=== PATIENT | male | born 1980 | race African-American/Black ===

== ENCOUNTER 2017-08-05 13:25 | Emergency (ER) | payer SELFPAY ==
[2017-08-05 13:30] VITALS: BP 138/88
--- NOTE | 2017-08-05 14:46 | ER Document Report ---
ED General - General Chief Complaint: Eye Problem Stated Complaint: POSSIBLE FOREIGN OBJECT IN LEFT EYE Time Seen by Provider: 08/05/17 14:03 Mode of Arrival: Ambulatory Information source: Patient Notes: 37-year-old male presents with concern of foreign body to the left eye just prior to arrival. Patient notes he was working on wood and thinks chips of what may have gotten into his eye, he notes that before he got here he felt that it was under the upper eyelid on the left but since being here symptoms have resolved. Patient notes last tetanus was one year ago denies any visual changes TRAVEL OUTSIDE OF THE [place] IN LAST 30 DAYS: No - HPI Onset: Just prior to arrival Onset/Duration: Sudden, Gone Quality of pain: No pain Severity: Mild Pain Level: Denies Associated symptoms: None Exacerbated by: Denies Relieved by: Denies Similar symptoms previously: No Recently seen / treated by doctor: No - Related Data Allergies/Adverse Reactions: No Known Allergies Allergy (Verified 08/05/17 13:27) Past Medical History - Social History Smoking Status: Never Smoker Cigarette use (# per day): No Chew tobacco use (# tins/day): No Smoking Education Provided: No Family History: Reviewed & Not Pertinent - Past Medical History Cardiac Medical History: Reports: Hx Hypertension - Immunizations Immunizations up to date: Yes Hx Diphtheria, Pertussis, Tetanus Vaccination: No Hx Pneumococcal Vaccination: 04/27/00 Review of Systems - Review of Systems Notes: REVIEW OF SYSTEMS: CONSTITUTIONAL : Denies fever, chills, or sweats. Denies recent illness. EENT: Admits to foreign body in the left eye CARDIOVASCULAR: Denies chest pain. Denies palpitations or racing or irregular heart beat. Denies ankle edema. RESPIRATORY: Denies cough, cold, or chest congestion. Denies shortness of breath, difficulty breathing, or wheezing. GASTROINTESTINAL: Denies abdominal pain or distention. Denies nausea, vomiting , or diarrhea. Denies blood in vomitus, stools, or per rectum. Denies black, tarry stools. Denies constipation. GENITOURINARY: Denies difficulty urinating, painful urination, burning, frequency, blood in urine, or discharge. MUSCULOSKELETAL: Denies back or neck pain or stiffness. Denies joint pain or swelling. SKIN: Denies rash, lesions or sores. HEMATOLOGIC : Denies easy bruising or bleeding. LYMPHATIC: Denies swollen, enlarged glands. NEUROLOGICAL: Denies confusion or altered mental status. Denies passing out or loss of consciousness. Denies dizziness or lightheadedness. Denies headache. Denies weakness or paralysis or loss of use of either side. Denies problems with gait or speech. Denies sensory loss, numbness, or tingling. Denies seizures. PSYCHIATRIC: Denies anxiety or stress. Denies depression, suicidal ideation, or homicidal ideation. ALL OTHER SYSTEMS REVIEWED AND NEGATIVE. Dictation was performed using edo voice recognition software PHYSICAL EXAMINATION: GENERAL: Well-appearing, well-nourished and in no acute distress. HEAD: Atraumatic, normocephalic. EYES: Pupils equal round and reactive to light, extraocular movements intact, sclera anicteric, conjunctiva is normal on the right slightly injected on the left, area was manually explored no foreign body was noted under the upper eyelid which was flipped, under fluorescein strip and UV light no corneal abrasions or ulcerations were noted, patient had his eye washed at wash station and notes no symptoms afterwards ENT: Nares patent, oropharynx clear without exudates. Moist mucous membranes. NECK: Normal range of motion, supple without lymphadenopathy LUNGS: Breath sounds clear to auscultation bilaterally and equal. No wheezes rales or rhonchi. HEART: Regular rate and rhythm without murmurs ABDOMEN: Soft, nontender, nondistended abdomen. No guarding, no rebound. No masses appreciated. Musculoskeletal: Normal range of motion, no pitting or edema. No cyanosis. NEUROLOGICAL: Cranial nerves grossly intact. Normal speech, normal gait. Normal sensory, motor exams PSYCH: Normal mood, normal affect. SKIN: Warm, Dry, normal turgor, no rashes or lesions noted. Physical Exam - Vital signs Vitals: Temp Pulse Resp BP Pulse Ox 98.4 F 74 16 138/88 H 98 08/05/17 13:28 08/05/17 13:28 08/05/17 13:28 08/05/17 13:28 08/05/17 13:28 Course - Re-evaluation Re-evalutation: 08/05/17 17:00 Given that the examination is benign patient's symptoms have since resolved I have very low suspicion that there is still a foreign body in the eye, it was examined carefully and no abrasions lacerations ulcerations or foreign bodies were noted. Patient overall looks well is in no distress, tetanus will not be updated since he just had it done Patient will nonetheless be given follow-up with ophthalmology for further evaluation care After performing a Medical Screening Examination, I estimate there is LOW risk for a RETAINED CORNEAL or LID FOREIGN BODY, DEEP SPACE INFECTION (e.g., ORBITAL CELLULITIS OR ABSCESS), ACUTE GLAUCOMA, PENETRATING GLOBE INJURY, RETINAL DETACHMENT, or MENINGITIS thus I consider the discharge disposition reasonable. I have reevaluated this patient multiple times and no significant life threatening changes are noted. Also, there is no evidence or peritonitis, sepsis , or toxicity. The patient and I have discussed the diagnosis and risks, and we agree with discharging home with outpatient follow-up with the understanding that symptoms and presentations can change. We also discussed returning to the Emergency Department immediately if new or worsening symptoms occur. We have discussed the symptoms which are most concerning (e.g., changing or worsening pain, vision changes, neck stiffness or fever) that necessitate immediate return. - Vital Signs Vital signs: Temp Pulse Resp BP Pulse Ox 98.4 F 74 16 138/88 H 98 08/05/17 13:28 08/05/17 13:28 08/05/17 13:28 08/05/17 13:28 08/05/17 13:28 Discharge - Discharge Clinical Impression: Foreign body, eye Qualifiers: Encounter type: initial encounter Laterality: left Qualified Code(s): T15.92XA - Foreign body on external eye, part unspecified, left eye, initial encounter Condition: Stable Disposition: HOME, SELF-CARE Instructions: Corneal Foreign Body ([facility]) Referrals: KERI VILLARREAL MD [ACTIVE STAFF] - Follow up tomorrow
== END 2017-08-05 14:59 | disposition home or self-care (01) ==
LOC: ER 13:25
DX: T15.92XA Foreign body on external eye, part unspecified, left eye, initial encounter (principal); X58.XXXA Exposure to other specified factors, initial encounter; I10 Essential (primary) hypertension
CPT/HCPCS: 99283

== ENCOUNTER 2018-02-09 07:44 | Inpatient (IN) | payer SELFPAY ==
[2018-02-09] MEDS ORDERED: ONDANSETRON 4 MG TAB.RAPDIS PO ONE (08:09)
[2018-02-09] MEDS ORDERED: BUPIVACAINE HCL 0.25% /EPINEPHRINE INJ/PF 30 ML SDV INJ ONE (08:11)
[2018-02-09] MEDS ORDERED: LIDOCAINE 1% INJ (10 MG/ML) 10 ML MDV INJ ONE (08:12)
--- NOTE | 2018-02-09 09:06 | ER Document Report ---
ED General - General Chief Complaint: Possible Overdose Stated Complaint: ABSCESS,POSSIBLE OVERDOSE Time Seen by Provider: 02/09/18 08:00 Notes: Patient is a 38-year-old male that presents to the emergency department for chief complaint of dental pain and taking too much BC powder. Patient reports he started having pain in his mouth 2 days ago, and yesterday started taking BC powder, in the morning, initially took a 2 pack of that in the morning, and then over the course of the day took 2 additional 6 packs of that medication, which for each dose includes 875 mg, over the course of the day he also took 9 200 mg ibuprofen, to try to help with his pain with his abscessed tooth. He then around 2 AM this morning took an additional 6 pack of the BC powder, to help with his pain. His pain persisted so at this point he decided come to the emergency department, and he realized that he had taken too much of this medication which was a concern for him as well. He had some nausea, but denies having any vomiting, denies any recent fevers, chills, night sweats, chest pain , tinnitus, ear pain, abdominal pain. He currently rates the pain in his tooth as a 4 out of 10, as an aching sensation and constant in the right lower teeth. Past Medical History: Denies chronic medical conditions Past Surgical History: Toe surgery Social History: Admits to smoking cigarettes daily, and occasional alcohol use, admits to marijuana use Family History: Reviewed and noncontributory for presenting illness Allergies: Reviewed, see documented allergy list. REVIEW OF SYSTEMS: Unless otherwise stated in this report the patient's positive and negative responses for review of systems for constitutional, eyes, ENT, cardiovascular, respiratory, gastrointestinal, neurological, genitourinary, musculoskeletal, and integumentary systems and related systems to the presenting problem are either as stated in the HPI or were not pertinent or were negative for the symptoms and/or complaints related to the presenting medical problem. PHYSICAL EXAMINATION: Vital signs reviewed, nursing noted reviewed. GENERAL: Well-appearing, well-nourished and in no acute distress. HEAD: Atraumatic, normocephalic. EYES: Eyes appear normal, extraocular movements intact, sclera anicteric, conjunctiva are normal. ENT: nares patent, oropharynx clear without exudates. Moist mucous membranes. Poor dentition, patient does have a tooth abscess noted at tooth #29, tender to palpate. Several other fractured teeth noted. NECK: Normal range of motion, supple without lymphadenopathy LUNGS: Breath sounds clear to auscultation bilaterally and equal. No wheezes rales or rhonchi. HEART: Heart rate tachycardic, regular rhythm, no audible murmurs ABDOMEN: Soft, nontender, normoactive bowel sounds. No rebound, guarding, or rigidity. No masses appreciated. EXTREMITIES: Nontender, good range of motion, no pitting or edema. NEUROLOGICAL: No focal neurological deficits. Moves all extremities spontaneously Motor and sensory grossly intact on exam. PSYCH: Normal mood, normal affect. SKIN: Warm, Dry, normal turgor, no rashes or lesions noted on exposed skin TRAVEL OUTSIDE OF THE [place] IN LAST 30 DAYS: No - Related Data Allergies/Adverse Reactions: No Known Allergies Allergy (Verified 02/09/18 08:08) Past Medical History - Social History Smoking Status: Current Every Day Smoker Chew tobacco use (# tins/day): No Frequency of alcohol use: Social Drug Abuse: Marijuana Family History: Reviewed & Not Pertinent Patient has suicidal ideation: No Patient has homicidal ideation: No - Past Medical History Cardiac Medical History: Reports: Hx Hypertension Renal/ Medical History: Denies: Hx Peritoneal Dialysis - Immunizations Immunizations up to date: Yes Hx Diphtheria, Pertussis, Tetanus Vaccination: No Hx Pneumococcal Vaccination: 04/27/00 Physical Exam - Vital signs Vitals: Temp Pulse Resp BP Pulse Ox 98.3 F 125 H 18 135/88 H 100 02/09/18 07:46 02/09/18 07:46 02/09/18 07:46 02/09/18 07:46 02/09/18 07:46 Course - Re-evaluation Re-evalutation: Patient seen and examined vital signs reviewed. Laboratory data and imaging were ordered as appropriate for the patient's presenting symptoms and complaint, with consideration of any critical or life threatening conditions that may be associated with their obtained history and exam as noted above. Patient was treated with IV fluids, bicarb bolus and infusion, per protocol recommended by poison control after I discussed this patient's case with him, Results were reviewed when available and demonstrated markedly elevated salicylate level at 48.8, bicarb is 21, anion gap was 15, urine was acidotic with a pH 5.0 Patient was treated for his dental abscess, with an I&D of the abscess, and dental block, which did improve the patient's symptoms, he was also started on Pen-Vee K for the infection The patient was re-evaluated and was stable Evaluation was most consistent with acute salicylate overdose, accidental, dental abscess Results were discussed with the patient at this point after careful consideration I feel that that patient should be admitted to the hospital. This was discussed with the patient that it is in the best interest for their care to be admitted for further evaluation and management. Patient agreed with this plan of care. A call was placed to the admitted physician, Dr. Michelle who graciously accepted the patient onto their service. *Note is created using voice recognition software and may contain spelling, syntax or grammatical errors. Laboratory 02/09/18 02/09/18 02/09/18 08:45 08:45 09:45 WBC 9.7 RBC 4.82 Hgb 14.8 Hct 43.4 MCV 90 MCH 30.8 MCHC 34.1 RDW 13.2 Plt Count 298 Seg Neutrophils % 76.2 Lymphocytes % 12.6 L Monocytes % 10.0 Eosinophils % 0.5 Basophils % 0.7 Absolute Neutrophils 7.4 Absolute Lymphocytes 1.2 Absolute Monocytes 1.0 Absolute Eosinophils 0.0 Absolute Basophils 0.1 Sodium 139.6 Potassium 4.0 Chloride 104 Carbon Dioxide 21 L Anion Gap 15 BUN 15 Creatinine 1.18 Est GFR ( Amer) > 60 Est GFR (Non-Af Amer) > 60 Glucose 111 H Calcium 10.6 H Total Bilirubin 0.4 Direct Bilirubin 0.3 Neonat Total Bilirubin Not Reportable Neonat Direct Bilirubin Not Reportable Neonat Indirect Bili Not Reportable AST 29 ALT 33 Alkaline Phosphatase 78 Total Protein 8.7 H Albumin 4.8 Lipase 39.8 Urine Color YELLOW Urine Appearance SLIGHTLY-CLOUDY Urine pH 5.0 Ur Specific [place] 1.019 Urine Protein 30 H Urine Glucose (UA) NEGATIVE Urine Ketones TRACE H Urine Blood NEGATIVE Urine Nitrite NEGATIVE Urine Bilirubin NEGATIVE Urine Urobilinogen NEGATIVE Ur Leukocyte Esterase NEGATIVE Urine WBC (Auto) 4 Urine RBC (Auto) 1 U Hyaline Cast (Auto) 1 Squamous Epi Cells Auto <1 Urine Mucus (Auto) RARE Urine Ascorbic Acid NEGATIVE Salicylates 48.8 H* Acetaminophen < 10 L - Vital Signs Vital signs: Temp Pulse Resp BP Pulse Ox 98.3 F 88 16 139/106 H 98 02/09/18 07:46 02/09/18 10:00 02/09/18 10:00 02/09/18 10:00 02/09/18 10:00 - Laboratory Result Diagrams: 02/09/18 08:45 02/09/18 08:45 Laboratory results interpreted by me: 02/09/18 02/09/18 02/09/18 08:45 08:45 09:45 Lymphocytes % 12.6 L Carbon Dioxide 21 L Glucose 111 H Calcium 10.6 H Total Protein 8.7 H Urine Protein 30 H Urine Ketones TRACE H Salicylates 48.8 H* Acetaminophen < 10 L - EKG Interpretation by Me Additional EKG results interpreted by me: EKG demonstrates sinus rhythm with a ventricular rate of 90 bpm, normal axis, normal intervals, no dysrhythmias, no evidence of acute ischemia on this EKG. Procedures - Incision and Drainage Right Face Type: Simple Anesthetic type: 1% Lidocaine, 0.25% Bupivacaine mL's of anesthetic: 3 Incision Method: Incision made with needle Amount/type of drainage: minimal purulent drainage Notes: 02/09/18 11:21 DENTAL ABSCESS TOOTH #29 Dental block was administered, with a combination of 0.25% bupivacaine, and 1% lidocaine, total of 3 mL's, this was injected into the trigone, on the right patient tolerated this well, and had good anesthesia. Discharge - Discharge Clinical Impression: Dental abscess Accidental poisoning by salicylates Qualifiers: Encounter type: initial encounter Qualified Code(s): T39.091A - Poisoning by salicylates, accidental (unintentional), initial encounter Condition: Stable Disposition: ADMITTED INPATIENT Admitting Provider: Hospitalist - DR. MICHELLE Unit Admitted: Medical Floor
[2018-02-09 09:17] LABS: ABSOLUTE BASOPHILS # (AUTO) 0.1 10^3/uL (0.0-0.2); ABSOLUTE LYMPHOCYTES (AUTO) 1.2 10^3/uL (0.5-4.7); ABSOLUTE NEUT (AUTO) 7.4 10^3/uL (1.7-8.2); BASOPHILS % (AUTO) 0.7 % (0-2); EOSINOPHILS % (AUTO) 0.5 % (0-6); HEMATOCRIT 43.4 % (37.9-51.0); HEMOGLOBIN 14.8 g/dL (13.5-17.0); LYMPHOCYTES % (AUTO) 12.6 % (13-45); MEAN CORPUSCULAR HEMOGLOBIN 30.8 pg (27.0-33.4); MEAN CORPUSCULAR HGB CONC 34.1 g/dL (32.0-36.0); MEAN CORPUSCULAR VOLUME 90 fl (80-97); PLATELET COUNT 298 10^3/uL (150-450); RED BLOOD COUNT 4.82 10^6/uL (4.35-5.55); RED CELL DISTRIBUTION WIDTH 13.2 % (11.5-14.0); SEGMENTED NEUTROPHILS % (AUTO) 76.2 % (42-78); TOTAL CELLS COUNTED % (AUTO) 100 %; WHITE BLOOD COUNT 9.7 10^3/uL (4.0-10.5)
[2018-02-09 09:42] LABS: BLOOD UREA NITROGEN 15 mg/dL (7-20); CALCIUM 10.6 mg/dL (8.4-10.2); GLUCOSE 111 mg/dL (75-110)
[2018-02-09 09:43] LABS: ALANINE AMINOTRANSFERASE 33 U/L (21-72); ALBUMIN 4.8 g/dL (3.5-5.0); ALKALINE PHOSPHATASE 78 U/L (38-126); ANION GAP 15 (5-19); ASPARTATE AMINO TRANSFERASE 29 U/L (17-59); BILIRUBIN,DIRECT 0.3 mg/dL (0.0-0.4); BILIRUBIN,TOTAL 0.4 mg/dL (0.2-1.3); CARBON DIOXIDE 21 mmol/L (22-30); CHLORIDE 104 mmol/L (98-107); LIPASE 39.8 U/L (23-300); SODIUM 139.6 mmol/L (137-145); TOTAL PROTEIN 8.7 g/dL (6.3-8.2)
[2018-02-09 09:44] LABS: ACETAMINOPHEN < 10 ug/mL (10-30)
[2018-02-09 10:00] LABS: SALICYLATE 48.8 mg/dL (2.0-20.0)
[2018-02-09] MEDS ORDERED: NORMAL SALINE 1000 ML 1,000 ML IV ONE (10:17)
[2018-02-09 10:27] LABS: APPEARANCE,URINE SLIGHTLY-CLOUDY; BILIRUBIN,URINE NEGATIVE (NEGATIVE); COLOR,URINE YELLOW; GLUCOSE, URINE NEGATIVE (NEGATIVE); KETONES,URINE TRACE mg/dL (NEGATIVE); LEUKOCYTE ESTERASE,URINE NEGATIVE (NEGATIVE); NITRITE,URINE NEGATIVE (NEGATIVE); PROTEIN,URINE 30 mg/dL (NEGATIVE); URINE SPECIFIC GRAVITY 1.019; UROBILINOGEN,URINE NEGATIVE mg/dL (<2.0)
[2018-02-09] MEDS ORDERED: SODIUM BICARBONATE 8.4% INJ 50 MEQ/50 ML DISP.SYRIN IV ONE (10:42)
[2018-02-09] MEDS ORDERED: DEXTROSE 5%-WATER 1000 ML 1,000 ML with SODIUM BICARBONATE 150 MEQ IV PRN ×2 (10:42)
[2018-02-09] MEDS ORDERED: PENICILLIN V POTASSIUM 500 MG TABLET PO ONE (10:46)
[2018-02-09] MEDS ORDERED: SODIUM BICARBONATE 8.4% INJ 50 MEQ/50 ML DISP.SYRIN ONE (10:58)
--- NOTE | 2018-02-09 13:04 | EKG REPORT ---
SEVERITY:- ABNORMAL ECG - SINUS RHYTHM RIGHT ATRIAL ABNORMALITY : Confirmed by: Art Nelson MD 09-Feb-2018 13:03:06
[2018-02-09 14:32] LABS: ARTERIAL BLOOD BASE EXCESS -0.6 mmol/L; ARTERIAL BLOOD FIO2 ROOM AIR; ARTERIAL BLOOD H2CO3 1.04 mmol/L (1.05-1.35); ARTERIAL BLOOD HCO3 22.9 mmol/L (20-24); ARTERIAL BLOOD O2 SATURATION 94.5 % (94-98); ARTERIAL BLOOD PCO2 34.6 mmHg (35-45); ARTERIAL BLOOD PH 7.44 (7.35-7.45); ARTERIAL BLOOD PO2 68.8 mmHg (80-100)
--- NOTE | 2018-02-09 15:13 | PDOC H&P ---
History of Present Illness Admission Date/PCP: 02/09/18 12:28 History of Present Illness: ANT SAENZ JR is a 38 year old male who was having a lot of tooth pain and was taking a lot of BC powders for it. He came to the hospital because he said it would not go away. He had been taken several BC powders a day for the last several days. He has not been running any fevers and he has not noticed any exudates from the tooth in question. It was determined that he actually had a dental abscess and was started on some penicillin the ER for it. However , when he started talking about how many BC powders he had been taking, it was decided to check some blood work on him and as it turns out his salicylate level is in the toxic range. He seems fairly asymptomatic from that standpoint. Poison control was contacted and recommended a regimen of bicarbonate infusion and IV fluids. He is being admitted for further evaluation. Past Medical History Cardiac Medical History: Reports: Hypertension Social History Smoking Status: Current Every Day Smoker - Advance Directive Resuscitation Status: Full Code Family History Family History: Reviewed & Not Pertinent Parental Family History Reviewed: No - Noncontributory Children Family History Reviewed: No - nonContributory Sibling(s) Family History Reviewed.: No - Noncontributory Medication/Allergy Home Medications: No Home Medications 02/09/18 Allergies/Adverse Reactions: No Known Allergies Allergy (Verified 02/09/18 08:08) Review of Systems All systems: reviewed and no additional remarkable complaints except as stated - 10 point review of systems was conducted with the patient was negative except as noted in HPI Physical Exam Vital Signs: Temp Pulse Resp BP Pulse Ox 98.3 F 88 30 H 155/105 H 100 02/09/18 07:46 02/09/18 10:00 02/09/18 13:14 02/09/18 13:14 02/09/18 13:14 General appearance: PRESENT: no acute distress, cooperative, disheveled, thin Head exam: PRESENT: atraumatic, normocephalic Eye exam: PRESENT: EOMI, PERRLA. ABSENT: nystagmus, scleral icterus Ear exam: PRESENT: normal external ear exam Mouth exam: PRESENT: moist, neck supple, tongue midline, other - He does have a bit of jaw swelling on the right side Teeth exam: PRESENT: dental caries, dental tenderness - The tooth in question appears to be the only existing molar he has on the lower row of teeth on the right side, poor dentation Neck exam: PRESENT: full ROM. ABSENT: lymphadenopathy, meningismus, tenderness Respiratory exam: PRESENT: clear to auscultation kristian, unlabored. ABSENT: accessory muscle use, rales, rhonchi, tachypnea, wheezes Cardiovascular exam: PRESENT: RRR, +S1, +S2. ABSENT: diastolic murmur, systolic murmur Pulses: PRESENT: normal carotid pulses, normal radial pulses Vascular exam: PRESENT: normal capillary refill GI/Abdominal exam: PRESENT: normal bowel sounds, soft. ABSENT: distended, guarding, rebound, tenderness Extremities exam: PRESENT: full ROM. ABSENT: pedal edema Musculoskeletal exam: PRESENT: ambulatory, normal inspection. ABSENT: deformity Neurological exam: PRESENT: alert, awake, oriented to person, oriented to place , oriented to time, CN II-XII grossly intact, motor sensory deficit Psychiatric exam: PRESENT: appropriate affect, normal mood Skin exam: PRESENT: dry, warm Results Laboratory Results: 02/09/18 14:23 02/09/18 02/09/18 14:00 14:23 Carbonic Acid 1.04 L HCO3/H2CO3 Ratio 22:1 ABG pH 7.44 ABG pCO2 34.6 L ABG pO2 68.8 L ABG HCO3 22.9 ABG O2 Saturation 94.5 ABG Base Excess -0.6 FiO2 ROOM AIR Potassium 3.4 L Assessment & Plan - Diagnosis (1) Accidental poisoning by salicylates Qualifiers: Encounter type: initial encounter Qualified Code(s): T39.091A - Poisoning by salicylates, accidental (unintentional), initial encounter Is this a current diagnosis for this admission?: Yes Plan: We have a bicarbonate infusion protocol going. We are monitoring his potassium , his urine output, his urine pH as well as his arterial pH and CO2. We will be checking a salicylate level later on the day. The target from poison control is a salicylate level less than 30. (2) Dental abscess Is this a current diagnosis for this admission?: Yes Plan: We have started him on some penicillin. He does not appear septic. He will need follow-up with a dentist. - Time Time Spent: 50 to 70 Minutes - Inpatient Certification Based on my medical assessment, after consideration of the patient's comorbidities, presenting symptoms, or acuity I expect that the services needed warrant INPATIENT care.: Yes I certify that my determination is in accordance with my understanding of Medicare's requirements for reasonable and necessary INPATIENT services [42 CFR 412.3e].: Yes Medical Necessity: Need Close Monitoring Due to Risk of Patient Decompensation, Need For IV Fluids, Risk of Complication if Not Cared For in Hospital
[2018-02-09 17:05] LABS: ARTERIAL BLOOD BASE EXCESS 2.5 mmol/L; ARTERIAL BLOOD FIO2 ROOMAIR; ARTERIAL BLOOD H2CO3 0.87 mmol/L (1.05-1.35); ARTERIAL BLOOD HCO3 24.1 mmol/L (20-24); ARTERIAL BLOOD O2 SATURATION 97.9 % (94-98); ARTERIAL BLOOD PCO2 28.8 mmHg (35-45); ARTERIAL BLOOD PH 7.54 (7.35-7.45); ARTERIAL BLOOD PO2 92.1 mmHg (80-100)
[2018-02-09 17:21] LABS: POTASSIUM 3.4 mmol/L (3.6-5.0)
[2018-02-09 17:30] LABS: SALICYLATE 33.9 mg/dL (2.0-20.0)
[2018-02-09] MEDS: PENICILLIN V POTASSIUM 500 MG TABLET PO SCH (18:31)
[2018-02-09] MEDS ORDERED: KETOROLAC TROMETHAMINE INJ/PF 30 MG/1 ML SDV IV PRN (19:08)
[2018-02-09] MEDS ORDERED: HYDRALAZINE HCL INJ/PF 20 MG/1 ML SDV IV PRN (19:56)
[2018-02-09 21:37] LABS: POTASSIUM 3.1 mmol/L (3.6-5.0)
[2018-02-09 22:03] LABS: APPEARANCE,URINE CLEAR; BILIRUBIN,URINE NEGATIVE (NEGATIVE); COLOR,URINE YELLOW; GLUCOSE, URINE NEGATIVE (NEGATIVE); KETONES,URINE TRACE mg/dL (NEGATIVE); LEUKOCYTE ESTERASE,URINE TRACE (NEGATIVE); NITRITE,URINE NEGATIVE (NEGATIVE); PROTEIN,URINE NEGATIVE (NEGATIVE); URINE SPECIFIC GRAVITY 1.016; UROBILINOGEN,URINE NEGATIVE mg/dL (<2.0)
[2018-02-09 22:10] LABS: SALICYLATE 23.2 mg/dL (2.0-20.0)
[2018-02-10] MEDS: PENICILLIN V POTASSIUM 500 MG TABLET PO SCH ×2 (00:31→06:25)
[2018-02-10 06:33] LABS: ANION GAP 8 (5-19); BLOOD UREA NITROGEN 11 mg/dL (7-20); CALCIUM 9.4 mg/dL (8.4-10.2); CARBON DIOXIDE 30 mmol/L (22-30); CHLORIDE 101 mmol/L (98-107); GLUCOSE 91 mg/dL (75-110); POTASSIUM 3.6 mmol/L (3.6-5.0); SALICYLATE 13.8 mg/dL (2.0-20.0); SODIUM 138.5 mmol/L (137-145)
[2018-02-10 09:35] VITALS: BP 164/108
--- NOTE | 2018-02-10 16:48 | PDOC DISCHARGE SUMMARY ---
General - Admit/Disc Date/PCP Admission Date/Primary Care Provider: 02/09/18 12:28 Discharge Date: 02/10/18 - Discharge Diagnosis (1) Accidental poisoning by salicylates Is this a current diagnosis for this admission?: Yes Summary: He took a bunch of BC powders for tooth pain and actually came in because of the tooth pain and we found the salicylate poisoning incidentally. We alkalinized his urine and his salicylate levels trended down to the normal range. (2) Dental abscess Is this a current diagnosis for this admission?: Yes Summary: We are sending him home on some Augmentin, but I recommended to him strongly that he get an appointment with a dentist. - Additional Information Resuscitation Status: Full Code Discharge Diet: Regular Discharge Activity: Activity As Tolerated Prescriptions: Amox Tr/Potassium Clavulanate [Augmentin 875-125 mg Tablet] 1 tab PO BID #20 tablet Home Medications: Amox Tr/Potassium Clavulanate [Augmentin 875-125 mg Tablet] 1 tab PO BID #20 tablet 02/10/18 History of Present Illness History of Present Illness: ANT SAENZ JR is a 38 year old male who was having a lot of tooth pain and was taking a lot of BC powders for it. He came to the hospital because he said it would not go away. He had been taken several BC powders a day for the last several days. He has not been running any fevers and he has not noticed any exudates from the tooth in question. It was determined that he actually had a dental abscess and was started on some penicillin the ER for it. However , when he started talking about how many BC powders he had been taking, it was decided to check some blood work on him and as it turns out his salicylate level is in the toxic range. He seems fairly asymptomatic from that standpoint. Poison control was contacted and recommended a regimen of bicarbonate infusion and IV fluids. He is being admitted for further evaluation. Hospital Course Hospital Course: He remained stable the whole time despite his toxic salicylate level. We alkalinize his urine and got his levels back down to normal. He was feeling better. He was started on some penicillin here, and he will continue a course of 10 days of Augmentin as an outpatient. He has had issues with this tooth for the last couple of years and about every 6 months and seems like this happens. He says it will swell up and swell up and then it will pop and drain him and he will feel better for a while. I strongly encouraged him to get an appointment with a dentist to have it evaluated. His labs and examination were reassuring and he was discharged today in good condition. Physical Exam Vital Signs: Temp Pulse Resp BP Pulse Ox 98.3 F 73 18 164/108 H 99 02/10/18 11:08 02/10/18 11:08 02/10/18 11:08 02/10/18 11:08 02/10/18 11:08 Intake & Output 02/09/18 02/10/18 02/11/18 06:59 06:59 06:59 Intake Total 1897 Output Total 100 Balance 1797 Weight 61 kg General appearance: PRESENT: no acute distress, cooperative, disheveled, thin Respiratory exam: PRESENT: clear to auscultation kristian, unlabored. ABSENT: accessory muscle use, rales, rhonchi, tachypnea, wheezes Cardiovascular exam: PRESENT: RRR, +S1, +S2. ABSENT: diastolic murmur, systolic murmur GI/Abdominal exam: PRESENT: normal bowel sounds, soft. ABSENT: guarding, rebound, tenderness Extremities exam: PRESENT: full ROM. ABSENT: pedal edema Musculoskeletal exam: PRESENT: ambulatory, normal inspection. ABSENT: deformity Neurological exam: PRESENT: alert, awake, oriented to person, oriented to place , oriented to time Results Laboratory Results: 02/10/18 05:18 02/09/18 02/09/18 02/09/18 16:10 16:20 20:30 Carbonic Acid 0.87 L HCO3/H2CO3 Ratio 27:1 ABG pH 7.54 H ABG pCO2 28.8 L ABG pO2 92.1 ABG HCO3 24.1 H ABG O2 Saturation 97.9 ABG Base Excess 2.5 FiO2 ROOMAIR Sodium Potassium 3.4 L 3.1 L Chloride Carbon Dioxide Anion Gap BUN Creatinine Est GFR ( Amer) Est GFR (Non-Af Amer) Glucose Calcium Urine Color Urine Appearance Urine pH Ur Specific Ackworth Urine Protein Urine Glucose (UA) Urine Ketones Urine Blood Urine Nitrite Ur Leukocyte Esterase Urine WBC (Auto) Urine RBC (Auto) 02/09/18 02/09/18 02/10/18 21:44 21:51 05:18 Carbonic Acid HCO3/H2CO3 Ratio ABG pH ABG pCO2 ABG pO2 ABG HCO3 ABG O2 Saturation ABG Base Excess FiO2 Sodium 138.5 Potassium 3.3 L 3.6 Chloride 101 Carbon Dioxide 30 Anion Gap 8 BUN 11 Creatinine 0.96 Est GFR ( Amer) > 60 Est GFR (Non-Af Amer) > 60 Glucose 91 Calcium 9.4 Urine Color YELLOW Urine Appearance CLEAR Urine pH 5.0 Ur Specific Ackworth 1.016 Urine Protein NEGATIVE Urine Glucose (UA) NEGATIVE Urine Ketones TRACE H Urine Blood NEGATIVE Urine Nitrite NEGATIVE Ur Leukocyte Esterase TRACE H Urine WBC (Auto) 4 Urine RBC (Auto) 2 Qualifiers - * PATIENT BEING DISCHARGED WITH ANY OF THE FOLLOWING DIAGNOSIS: No
== END 2018-02-10 11:30 | disposition home or self-care (01) | DRG 918 ==
LOC: ER 07:44 → UNDOADMIN 12:28 → EH 12:28 → 5 14:45
PROVIDERS: ADMIT Emergency Medicine; ATTEND Emergency Medicine
PROC: 0C9XXZ0 Drainage of Lower Tooth, External Approach, Single (ICD-10-PCS; principal; 2018-02-09)
DX: T39.091A Poisoning by salicylates, accidental (unintentional), initial encounter (principal); K04.7 Periapical abscess without sinus; Y92.9 Unspecified place or not applicable; I10 Essential (primary) hypertension; F17.210 Nicotine dependence, cigarettes, uncomplicated
CPT/HCPCS: 36415; 36600; 80048; 80053; 80307; 81001; 82803; 83690; 84132; 85025; 93005; 93010; 96360; 99285; J3490; J7030; J7060; S0119

== ENCOUNTER 2019-01-13 11:58 | Emergency (ER) | payer SELFPAY ==
[2019-01-13 12:04] VITALS: BP 134/92
--- NOTE | 2019-01-13 12:30 | ER Document Report ---
ED General - General Chief Complaint: Insect Bite Stated Complaint: BUG BITE Time Seen by Provider: 01/13/19 12:30 Primary Care Provider: [facility] [Provider Group] - Follow up as needed TRAVEL OUTSIDE OF THE [place] IN LAST 30 DAYS: No - HPI Notes: 39 year old male to the ED with C/O an insect bite to his right forearm. States he was bitten yesterday. States that it has gotten more itchy and red since yesterday. He admits to a little bit of drainage from the site. Denies fever or chills. - Related Data Allergies/Adverse Reactions: No Known Allergies Allergy (Verified 02/09/18 08:08) Past Medical History - General Information source: Patient - Social History Smoking Status: Never Smoker Frequency of alcohol use: None Drug Abuse: None Family History: Reviewed & Not Pertinent - Past Medical History Cardiac Medical History: Reports: Hx Hypertension Renal/ Medical History: Denies: Hx Peritoneal Dialysis - Immunizations Immunizations up to date: Yes Hx Diphtheria, Pertussis, Tetanus Vaccination: No Hx Pneumococcal Vaccination: 04/27/00 Review of Systems - Review of Systems Constitutional: denies: Chills, Fever EENT: No symptoms reported Cardiovascular: denies: Chest pain, Palpitations, Dyspnea, Syncope, Dizziness, Lightheaded Respiratory: denies: Cough, Hurts to breathe, Short of breath Gastrointestinal: denies: Abdominal pain, Diarrhea, Nausea, Vomiting Skin: See HPI -: Yes All other systems reviewed and negative Physical Exam - Vital signs Vitals: Temp Pulse Resp BP Pulse Ox 98.5 F 69 16 134/92 H 99 01/13/19 12:03 01/13/19 12:03 01/13/19 12:03 01/13/19 12:03 01/13/19 12:03 Interpretation: Normal - General General appearance: Appears well, Alert - HEENT Head: Normocephalic, Atraumatic Eyes: Normal Pupils: PERRL Mouth/Lips: Normal. No: Angioedema Pharynx: Normal. No: Potential airway comprom. Neck: Normal, Supple - Respiratory Respiratory status: No respiratory distress Chest status: Nontender Breath sounds: Normal. No: Rales, Rhonchi, Stridor, Wheezing Chest palpation: Normal - Cardiovascular Rhythm: Regular Heart sounds: Normal auscultation Murmur: No - Abdominal Inspection: Normal Distension: No distension Bowel sounds: Normal Tenderness: Nontender Organomegaly: No organomegaly - Back Back: Normal, Nontender - Psychological Associated symptoms: Normal affect, Normal mood - Skin Skin Temperature: Warm Skin Moisture: Dry Skin Color: Normal Skin irregularity: other - to the right forearm, there is an insect bite with noted surrounding erythema and edema. There is no evidence for abscess. Noted warmth to the area, mild edema. No harley purulence from the site., Course - Re-evaluation Re-evalutation: Impression: Insect bite to the right forearm with likely local reaction. Since patient reports drainage and increased erythema and pain, will cover with Keflex and Bactrim as well. Patient agrees with the plan. - Vital Signs Vital signs: Temp Pulse Resp BP Pulse Ox 98.5 F 69 16 134/92 H 99 01/13/19 12:03 01/13/19 12:03 01/13/19 12:03 01/13/19 12:03 01/13/19 12:03 Discharge - Discharge Clinical Impression: Local reaction to insect sting Insect bite Qualifiers: Encounter type: initial encounter Site of insect bite: forearm Condition: Stable Disposition: HOME, SELF-CARE Instructions: Insect Sting ([facility]) Additional Instructions: FOLLOW UP WITH PRIMARY CARE. TAKE MEDICINES PRESCRIBED. RETURN IF REDNESS PROGRESSING OUT OF THE AREA MARKED IN THE NEXT 24 HOURS OR FEVERS. Prescriptions: Hydroxyzine HCl [Atarax 50 mg Tablet] 50 mg PO PRN PRN #14 tablet PRN Reason: Sulfamethoxazole/Trimethoprim [Bactrim Ds Tablet] 1 each PO BID #14 tablet Hydrocortisone [Cortisone] 28 gm TP BID #1 tube Cephalexin Monohydrate [Keflex 500 mg Capsule] 500 mg PO Q6H 7 Days #28 capsule Referrals: [facility] [Provider Group] - Follow up as needed
[2019-01-13] MEDS ORDERED: HYDROXYZINE HCL 10 MG TABLET PO ONE (12:39)
== END 2019-01-13 12:49 | disposition home or self-care (01) ==
LOC: ER 11:58
DX: T63.481A Toxic effect of venom of other arthropod, accidental (unintentional), initial encounter (principal); I10 Essential (primary) hypertension
CPT/HCPCS: 99281

== ENCOUNTER 2019-02-01 11:37 | Emergency (ER) | payer SELFPAY ==
[2019-02-01 11:41] VITALS: BP 135/91
[2019-02-01] MEDS ORDERED: CLINDAMYCIN HCL 150 MG CAPSULE PO ONE (12:07)
--- NOTE | 2019-02-01 12:11 | ER Document Report ---
HPI - HPI Patient complains to provider of: dental pain Time Seen by Provider: 02/01/19 11:56 Onset: Other - 5 days Onset/Duration: Persistent Quality of pain: Achy Pain Level: 5 Context: Patient presents complaining of 5-day history of right lower jaw dental pain. Patient states today he has had some swelling as well. No fever. Associated Symptoms: denies: Fever Exacerbated by: Denies Relieved by: Denies Similar symptoms previously: Yes Recently seen / treated by doctor: No - ROS ROS below otherwise negative: Yes Systems Reviewed and Negative: Yes All other systems reviewed and negative - CONSTITUTIONAL Constitutional: DENIES: Fever, Chills - EENT Notes: Dental pain, gingival swelling - NEURO Neurology: DENIES: Headache - CARDIOVASCULAR Cardiovascular: DENIES: Chest pain - RESPIRATORY Respiratory: DENIES: Trouble Breathing, Coughing - DERM Skin Color: Normal Skin Problems: None Past Medical History - General Information source: Patient - Social History Smoking Status: Never Smoker Chew tobacco use (# tins/day): No Frequency of alcohol use: None Drug Abuse: Marijuana Occupation: [employer] Family History: Reviewed & Not Pertinent Patient has suicidal ideation: No Patient has homicidal ideation: No - Medical History Medical History: Negative Renal/ Medical History: Denies: Hx Peritoneal Dialysis Surgical Hx: Negative - Immunizations Immunizations up to date: Yes Hx Diphtheria, Pertussis, Tetanus Vaccination: No Hx Pneumococcal Vaccination: 04/27/00 Vertical Provider Document - CONSTITUTIONAL Agree With Documented VS: Yes Exam Limitations: No Limitations General Appearance: WD/WN, No Apparent Distress - INFECTION CONTROL TRAVEL OUTSIDE OF THE [place] IN LAST 30 DAYS: No - HEENT HEENT: Atraumatic, Normocephalic. negative: Pharyngeal Exudate, Pharyngeal Tenderness, Pharyngeal Erythema, Tympanic Membrane Red, Tympanic Membrane Bulging Mouth Diagram: 1 - Dental decay, fracture, gingival inflammation, no sublingual or submental swelling, no potential airway compromise, no trismus. - NECK Neck: Normal Inspection, Supple. negative: Lymphadenopathy-Left, Lymphadenopathy-Right - RESPIRATORY Respiratory: Breath Sounds Normal, No Respiratory Distress - CARDIOVASCULAR Cardiovascular: Regular Rate, Regular Rhythm - MUSCULOSKELETAL/EXTREMETIES Musculoskeletal/Extremeties: MAEW - NEURO Level of Consciousness: Awake, Alert, Appropriate Motor/Sensory: No Motor Deficit - DERM Integumentary: Warm, Dry Course - Vital Signs Vital signs: Temp Pulse Resp BP Pulse Ox 98.7 F 79 135/91 H 100 02/01/19 11:41 02/01/19 11:41 02/01/19 11:41 02/01/19 11:41 Discharge - Discharge Clinical Impression: Infected dental caries Condition: Stable Disposition: HOME, SELF-CARE Instructions: Clindamycin ([facility]), Dental Infection or Abscess ([facility]) Additional Instructions: Return immediately for any new or worsening symptoms Followup with your primary care provider, call tomorrow to make a followup appointment Follow-up with a dental care provider for further evaluation Prescriptions: Clindamycin HCl [Cleocin 300 mg Capsule] 300 mg PO TID #21 capsule Naproxen [Naprosyn 250 Nmg Tablet] 1 tab PO BID #14 tablet Referrals: [facility] [Provider Group] - Follow up as needed
== END 2019-02-01 12:16 | disposition home or self-care (01) ==
LOC: ER 11:37
DX: K04.7 Periapical abscess without sinus (principal); K02.9 Dental caries, unspecified; K05.10 Chronic gingivitis, plaque induced; K08.89 Other specified disorders of teeth and supporting structures; F12.10 Cannabis abuse, uncomplicated